=== PATIENT | male | born 1935 | race Caucasian/White ===

== ENCOUNTER 2016-04-22 07:54 | Emergency (ER) | payer MEDICARE ==
[2016-04-22 08:36] LABS: HEMOGLOBIN 13.4 gm/dl (14.0-17.5); RED BLOOD COUNT 4.53 M/UL (4.20-5.50); WHITE BLOOD COUNT 4.6 K/UL (4.5-11.0)
== END 2016-04-22 12:46 | disposition home or self-care (01) ==
LOC: ER1 07:54 → ZEROF 09:44
PROVIDERS: Emergency Medicine
DX: R07.89 Other chest pain (principal); I70.0 Atherosclerosis of aorta; N19 Unspecified kidney failure; D64.9 Anemia, unspecified; E78.5 Hyperlipidemia, unspecified; E11.22 Type 2 diabetes mellitus with diabetic chronic kidney disease; I12.9 Hypertensive chronic kidney disease with stage 1 through stage 4 chronic kidney disease, or unspecified chronic kidney disease; N18.9 Chronic kidney disease, unspecified; J44.9 Chronic obstructive pulmonary disease, unspecified; Z87.19 Personal history of other diseases of the digestive system; Z90.49 Acquired absence of other specified parts of digestive tract; Z79.891 Long term (current) use of opiate analgesic; Z79.899 Other long term (current) drug therapy; Z87.891 Personal history of nicotine dependence; Z82.5 Family history of asthma and other chronic lower respiratory diseases; Z83.3 Family history of diabetes mellitus
CPT/HCPCS: 36415; 71010; 80053; 83690; 84484; 85025; 93005; 99285; G0378

== ENCOUNTER → 2020-11-18 | Outpatient (CLI) | payer MEDICARE | LOC: EXRD 09:17 | DX: M50.30 Other cervical disc degeneration, unspecified cervical region (principal); M51.34 Other intervertebral disc degeneration, thoracic region | CPT/HCPCS: 72050; 72070 ==